=== PATIENT | female | born 1955 | race Caucasian/White ===

== ENCOUNTER → 2016-09-27 | Outpatient (CLI) | payer OTHER ==
[2016-09-27 13:35] LABS: EKG EKG PERFORMED
[2016-09-27 13:45] LABS: Basophils % (A) 1 %; CH 30.1; CHCM 33.3; Eosinophils # (A) 0.2 k/uL (0-0.7); Eosinophils % (A) 2 %; HCT 44.5 % (34.0-46.0); HGB 14.8 gm/dL (11.4-16.0); Luc # (Auto) 0.17; Luc % (Auto) 2; Lymphocytes # (A) 1.5 k/uL (1.0-4.8); Lymphocytes % (A) 18 %; MCH 30.3 pg (25.0-35.0); MCHC 33.3 g/dL (31.0-37.0); Mean Platelet Volume 6.9; Monocytes # (A) 0.5 k/uL (0-1.0); Monocytes % (A) 6 %; Neutrophils # (A) 5.7 k/uL (1.3-7.7); Neutrophils % (A) 71 %; RBC 4.89 m/uL (3.80-5.40); RDW 11.8 % (11.5-15.5); WBC (Perox) 8.16
--- NOTE | 2016-09-27 14:05 | XR ---
EXAMINATION TYPE: XR chest 2V DATE OF EXAM: 09/27/2016 1:58 PM COMPARISON: NONE HISTORY: Shortness of breath TECHNIQUE: Frontal and lateral views of the chest are obtained. FINDINGS: Scattered senescent parenchymal changes noted. Hyperinflation compatible with COPD. No evidence for infiltrate. No evidence for atelectasis. Heart size is stable. Mediastinal structures are stable and grossly unremarkable. No evidence for hilar prominence. Degenerative changes dorsal spine. IMPRESSION: 1. No evidence for acute pulmonary disease.
[2016-09-27 14:13] LABS: Anion Gap 11 mmol/L; Carbon Dioxide 30 mmol/L (22-30); Chloride 100 mmol/L (98-107); Potassium 4.6 mmol/L (3.5-5.1); Sodium 141 mmol/L (137-145)
== END | disposition home or self-care (01) ==
LOC: LABPAT 13:23
PROVIDERS: ATTEND Orthopaedic Surgery
DX: Z01.818 Encounter for other preprocedural examination (principal); Z01.810 Encounter for preprocedural cardiovascular examination; Z01.812 Encounter for preprocedural laboratory examination
CPT/HCPCS: 36415; 71020; 80051; 85025; 93005

== ENCOUNTER 2016-10-06 06:54 | Day surgery (SDC) | payer OTHER ==
[2016-10-04 14:30] VITALS: BMI 24.4
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
[~2016-10-06 06:54] MED LIST: DEXAMETHASONE SOD PHOSPHATE 10 MG/ML 1 ML VIAL IV ONE; HYDROmorphone 1 MG/ML 1 ML SYRINGE IVP PRN; LACTATED RINGERS 1,000 ML IV SCH; LIDOCAINE 1% 20 ML VIAL (10MG/ML) FOR IV START INTRADERMA PRN; MIDAZOLAM 2 MG/2 ML VIAL IV PRN; ONDANSETRON 4 MG/2 ML VIAL IVP ONE; SCOPOLAMINE 1.5MG/72HR PATCH TRANSDERM ONE; ceFAZolin 1,000 MG in DEXTROSE/WATER 1 50ML.BAG IV ONE
[2016-10-06] MEDS ORDERED: PROPOFOL 10 MG/ML 20 ML VIAL IV ONE (07:54)
[2016-10-06] MEDS ORDERED: LIDOCAINE 1% INJ 10MG/ML (20 ML MDV) ONE (07:54)
[2016-10-06] MEDS ORDERED: fentaNYL (PF) 50 MCG/ML 2 ML AMP ONE (07:54)
[2016-10-06] MEDS ORDERED: MIDAZOLAM 2 MG/2 ML VIAL ONE (07:54)
[2016-10-06] MEDS ORDERED: EPINEPHrine (PF) 1 ML in SODIUM CHLORIDE 0.9% IRRIGATIO 3,000 ML IRRIGATION ONE ×4 (08:00)
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
[2016-10-06 08:55] VITALS: TEMP 98.1
[2016-10-06] MEDS ORDERED: LACTATED RINGERS 1,000 ML IV ONE (09:05)
[2016-10-06 10:19] VITALS: RESP 16
[2016-10-06] MEDS ORDERED: HYDROcodone/APAP 5-325MG 1 EACH TAB PO ONE (10:46)
[2016-10-06 11:11] VITALS: BP 138/85; PULSE 90
== END 2016-10-06 12:10 | disposition home or self-care (01) ==
LOC: OR 06:54
PROVIDERS: ATTEND Orthopaedic Surgery
DX: S83.241A Other tear of medial meniscus, current injury, right knee, initial encounter (principal); S83.281A Other tear of lateral meniscus, current injury, right knee, initial encounter; V29.9XXA Motorcycle rider (driver) (passenger) injured in unspecified traffic accident, initial encounter; M24.10 Other articular cartilage disorders, unspecified site; I10 Essential (primary) hypertension; J45.909 Unspecified asthma, uncomplicated; K21.9 Gastro-esophageal reflux disease without esophagitis; Z79.899 Other long term (current) drug therapy; Z88.2 Allergy status to sulfonamides
CPT/HCPCS: 29880; J2250; J1100; J2405; J0171; J2001; J3010; J1170; J0690; J2704

== ENCOUNTER → 2018-07-09 | Outpatient (CLI) | payer OTHER ==
--- NOTE | 2018-07-10 08:36 | CT ---
EXAMINATION TYPE: CT chest w con DATE OF EXAM: 07/09/2018 COMPARISON: Chest x-ray 03/05/2018 HISTORY: Lung nodule CT DLP: 227.2 mGycm, Automated exposure control for dose reduction was used. CONTRAST: Performed injected with 100 mL of Isovue 300. TECHNIQUE: Axial images were obtained at 5 mm thick sections. Reconstructed images are reviewed on [employer] computer in the coronal plane. FINDINGS: Portion of the thyroid visualized is normal. There is a spiculated 1.1 cm mass at the cardiomediastinal border within the right middle lobe. Serie s 204 image 39. Additional workup with PET CT is recommended. There is a very subtle area of pneumonitis within the periphery of the right anterior upper lung fiel d. Example image series 204, image 23. No enlarged mediastinal or hilar adenopathy is evident. A 0.9 cm right hilar lymph node may be pres ent. The ascending aorta diameter at the level of the main pulmonary artery is 3.7 cm. The main pul monary artery diameter at the bifurcation is 2.3 cm. Some mild coronary artery calcification may be p resent. Limited CT sections are obtained through the upper abdomen. Upper abdomen is unremarkable. IMPRESSIONS: 1. 1.1 cm spiculated mass anterior medial right middle lobe. This is suspicious for neoplasm, additio nal workup with PET CT is recommended. A Mclean level critical message alert has been initiated for Ivy Knowles MD~[id number] via the [employer] Critical Results System on 07/10/2018 8:34 AM. This message alert has been sent to Ivy Knowles MD~[id number] via the preferences provided by the clinician for the receipt of Radiology Critical Finding s. Message ID [id number].
== END | disposition home or self-care (01) ==
LOC: RADCTMAIN 16:00
PROVIDERS: ATTEND Internal Medicine
DX: R91.8 Other nonspecific abnormal finding of lung field (principal); Z88.2 Allergy status to sulfonamides
CPT/HCPCS: 71260; Q9967